=== PATIENT | male | born 1970 | race Caucasian/White ===

== ENCOUNTER 2019-01-18 14:38 | Emergency (ER) | payer BC, OTHER ==
[2019-01-18] MEDS: Lidocaine 1% 20 ML MDV ONE (14:51)
[2019-01-18] MEDS: Lidocaine 1% 20 ML MDV INJECT ONE (15:03)
--- NOTE | 2019-01-18 15:06 | EDM.PDOC ---
ED HPI GENERAL MEDICAL PROBLEM - General Chief Complaint: Laceration Stated Complaint: RIGHT HAND LACERATION Time Seen by Provider: 01/18/19 14:45 Source of Information: Reports: Patient History Limitations: Reports: No Limitations - History of Present Illness INITIAL COMMENTS - FREE TEXT/NARRATIVE: 48 YO WM presents to ER with 5cm laceration to right palm from metal cage. Pt reports laceration is at the base of his thumb without any functional deficits. Pt able to oppose thumb and injury is neurovascularly intact. Pt without any other complaints. Onset: Today Duration: Hour(s): (1) Location: Reports: Upper Extremity, Right Severity: Mild Improves with: Reports: None Worsens with: Reports: None Associated Symptoms: Reports: No Other Symptoms Treatments EXHIBIT PREPARATOR: Reports: Dressing(s) Right Hand Pain Score (Numeric/FACES): 4 - Related Data Allergies Allergy/AdvReac Type Severity Reaction Status Date / Time gemfibrozil [From Lopid] Allergy Hives Verified 01/18/19 14:48 morphine Allergy Hives Verified 01/18/19 14:48 Eajqazy-Yqj-Mui Reductase Allergy Hives Verified 01/18/19 14:48 Inhibitor Home Meds: Home Meds Cephalexin [Keflex] 500 mg PO Q6HR #40 capsule 01/18/19 [Rx] Cholestyramine/Sucrose [Cholestyramine] 1 pkt PO DAILY PRN 01/18/19 [History] Ezetimibe 10 mg PO DAILY 01/18/19 [History] Levothyroxine 175 mcg PO DAILY 01/18/19 [History] Lisinopril 2.5 mg PO DAILY 01/18/19 [History] metFORMIN HCl [Metformin HCl ER] 500 mg PO DAILY 01/18/19 [History] Past Medical History HEENT History: Reports: Allergic Rhinitis Musculoskeletal History: Reports: None Neurological History: Reports: Migraines Endocrine/Metabolic History: Reports: Diabetes, Type II, Hypothyroidism - Past Surgical History Head Surgeries/Procedures: Reports: None HEENT Surgical History: Reports: None GI Surgical History: Reports: Appendectomy, Cholecystectomy, Hernia, Inguinal Endocrine Surgical History: Reports: None Neurological Surgical History: Reports: None Musculoskeletal Surgical History: Reports: Shoulder Surgery Social & Family History - Family History Family Medical History: Noncontributory ED ROS GENERAL - Review of Systems Review Of Systems: See Below Constitutional: Reports: No Symptoms HEENT: Reports: No Symptoms Respiratory: Reports: No Symptoms Cardiovascular: Reports: No Symptoms Endocrine: Reports: No Symptoms GI/Abdominal: Reports: No Symptoms : Reports: No Symptoms Musculoskeletal: Reports: No Symptoms Skin: Reports: Wound (5cm laceration to palmar surface of right hand at base of thumb) Neurological: Reports: No Symptoms ED EXAM, SKIN/RASH Exam: See Below Exam Limited By: No Limitations General Appearance: Alert, WD/WN, No Apparent Distress Head: Atraumatic, Normocephalic Neck: Normal Inspection, Supple, Non-Tender, Full Range of Motion Respiratory/Chest: No Respiratory Distress, Lungs Clear, Normal Breath Sounds, No Accessory Muscle Use, Chest Non-Tender Cardiovascular: Normal Peripheral Pulses, Regular Rate, Rhythm, No Edema, No Gallop, No JVD, No Murmur, No Rub GI/Abdominal: Normal Bowel Sounds, Soft, Non-Tender, No Organomegaly, No Distention, No Abnormal Bruit, No Mass Back Exam: Normal Inspection, Full Range of Motion, NT Extremities: Normal Range of Motion, No Pedal Edema, Normal Capillary Refill Neurological: Alert, Oriented, CN II-XII Intact, Normal Cognition, Normal Gait, Normal Reflexes, No Motor/Sensory Deficits Psychiatric: Normal Affect, Normal Mood Skin: Warm, Dry, Normal Color, No Rash, Wound/Incision (5cm laceration to palmar surface of right hand at base of thumb) Location, Skin: Upper Extremity, Right Lymphatic: No Adenopathy ED SKIN PROCEDURES - Laceration/Wound Repair Right Hand Lac/Wound length In cm: 5 Appearance: Superficial Anesthetic Type: Local Local Anesthesia - Lidocaine (Xylocaine): 1% Plain Local Anesthetic Volume: Other (6cc) Skin Prep: Chlorhexidine (Hibiciens), Saline Exploration/Debridement/Repair: Wound Explored Closed with: Sutures Suture Size: 4-0 # of Sutures: 6 Sterile Dressing Applied: Provider Tetanus Status Addressed: Yes Complications: No Course - Vital Signs Last Recorded V/S: Last Vital Signs Temp 36.6 C 01/18/19 14:44 Pulse 80 01/18/19 14:44 Resp 16 01/18/19 14:44 BP 133/75 01/18/19 14:44 Pulse Ox 94 L 01/18/19 14:44 - Orders/Labs/Meds Meds: Medications Discontinued Medications Generic Name Dose Route Start Last Admin Trade Name Franci PRN Reason Stop Dose Admin Lidocaine HCl Confirm 01/18/19 14:40 01/18/19 14:51 Xylocaine 1% Administered 01/18/19 14:41 Not Given Dose 20 ml .ROUTE .STK-MED ONE Departure - Departure Time of Disposition: 15:23 Disposition: Home, Self-Care 01 Condition: Good Clinical Impression: Laceration of right palm without complication Qualifiers: Encounter type: initial encounter Qualified Code(s): S61.411A - Laceration without foreign body of right hand, initial encounter - Discharge Information Prescriptions: Cephalexin [Keflex] 500 mg PO Q6HR #40 capsule Instructions: Laceration Care, Adult Referrals: Marta Dupont PA-C [Primary Care Provider] - Additional Instructions: 1. discharge home 2. wound care instructions given 3. remove sutures in 10-14 days 4. return to ER for worsening symptoms 5. follow up in clinic for further evaluation and treatment - Assessment/Plan Assessment:: 1. 5cm laceration to palmar surface of right hand at base of thumb Plan: 1. discharge home 2. wound care instructions given 3. remove sutures in 10-14 days 4. return to ER for worsening symptoms 5. follow up in clinic for further evaluation and treatment
[2019-01-18] MEDS: Diphtheria,Pertussis(Acell),Tetanus Vaccine 0.5 ML SDV IM ONE (15:15)
== END 2019-01-18 15:30 | disposition home or self-care (01) ==
LOC: KA.ED 14:38
DX: S61.411A Laceration without foreign body of right hand, initial encounter (principal); E11.9 Type 2 diabetes mellitus without complications; E03.9 Hypothyroidism, unspecified; Z23 Encounter for immunization; Z79.84 Long term (current) use of oral hypoglycemic drugs; Z79.899 Other long term (current) drug therapy; Z90.49 Acquired absence of other specified parts of digestive tract; Z88.8 Allergy status to other drugs, medicaments and biological substances; Z88.5 Allergy status to narcotic agent; W26.8XXA Contact with other sharp object(s), not elsewhere classified, initial encounter
CPT/HCPCS: 12002; 90471; 90715; 99282; J2001

== ENCOUNTER 2019-08-26 10:54 | Observation (INO) | payer BC ==
[2019-08-26] MEDS ORDERED: Sodium Chloride 0.9% 10 ML Syringe FLUSH PRN (12:03)
[2019-08-26] MEDS ORDERED: Iopamidol 755 Mg/ML 100 ML Bottle IV ONE (12:29)
[2019-08-26] MEDS ORDERED: Diatrizoate Meglumine/Diatrizoate Sodium 37% 120 ML Bottle PO ONE (12:29)
[2019-08-26] MEDS ORDERED: Sodium Chloride 0.9% 50 ML IV SCH (12:30)
[2019-08-26] MEDS: Ondansetron 4 MG/2 ML SDV IV PRN ×2 (12:39→17:07)
[2019-08-26] MEDS: HYDROmorphone 2 MG/ML SDV IVPUSH PRN ×2 (12:40→16:05)
[2019-08-26] MEDS: Sodium Chloride 0.9% 1,000 ML IV SCH (12:41)
--- NOTE | 2019-08-26 13:01 | CT ---
[id number] CT/CT Abdomen Pelvis W IV EXAM: ABDOMEN AND PELVIS CT WITH CONTRAST INDICATION: Abdominal pain. COMPARISON: None. DISCUSSION: There are a couple of small noncalcified nodules in the lung bases including a 3 mm right lower lobe nodule (image 3 series 2) and a 2.5 mm right middle lobe nodule (image 12 series 2). Cholecystectomy and appendectomy. Small fat-containing umbilical hernia. The liver, pancreas, spleen, adrenal glands, kidneys, small bowel, and large bowel are normal in appearance. No adenopathy, free air free fluid. The osseous structures are unremarkable. IMPRESSION: 1. No acute findings. Oren Garcia MD 08/26/19 [id number] Thank you for allowing us to participate in the care of your patient.
[2019-08-26] MEDS ORDERED: Pantoprazole 40 MG Vial IVPUSH ONE (15:01)
[2019-08-26] MEDS ORDERED: GI Cocktail 45 ML BOTTLE PO ONE (15:10)
--- NOTE | 2019-08-26 18:35 | CR ---
[id number] RAD/RAD Chest PA And Lateral EXAM: FRONTAL AND LATERAL CHEST INDICATION: LEFT-SIDED PAIN, SWEATY, NAUSEA, VOMITING. COMPARISON: None. DISCUSSION: Mild left lower lobe infiltrates are suggested. The right lung is clear. The heart is normal in size. IMPRESSION: 1. Early left lower lobe infiltrates are suggested. Oren Garcia MD 08/26/19 [id number] Thank you for allowing us to participate in the care of your patient.
[2019-08-26] MEDS ORDERED: Acetaminophen 500 MG Tab PO PRN (19:13)
[2019-08-26] MEDS ORDERED: Fluticasone Propionate Nasal Spray 16 GM Bottle NASBOTH SCH (21:00)
[2019-08-26] MEDS: HYDROmorphone 1 MG/ML Syringe IVPUSH PRN (21:04)
[2019-08-26] MEDS: Pantoprazole 40 MG Vial IVPUSH SCH (21:05)
[2019-08-27] MEDS: Sodium Chloride 0.9% 1,000 ML IV SCH ×3 (02:31→19:59)
[2019-08-27] MEDS: HYDROmorphone 1 MG/ML Syringe IVPUSH PRN ×4 (04:03→20:01)
[2019-08-27] MEDS: Levothyroxine 75 MCG Tab PO SCH (08:26)
[2019-08-27] MEDS: Pantoprazole 40 MG Vial IVPUSH SCH ×2 (08:26→20:19)
[2019-08-27] MEDS: Levothyroxine 100 MCG Tab PO SCH (08:27)
[2019-08-27] MEDS ORDERED: Hyoscyamine 0.125 MG Tab.SL SL PRN (08:55)
[2019-08-27] MEDS: Ondansetron 4 MG/2 ML SDV IV PRN ×2 (10:05→20:15)
--- NOTE | 2019-08-27 11:10 | PCM.PN ---
- General Info Date of Service: 08/27/19 Functional Status: Reports: Urinating, New Symptoms (Left upper quadrant abdominal pain as soon as meal was eaten this morning). Denies: Pain Controlled , Tolerating Diet, Ambulating - Review of Systems General: Denies: Fever, Weakness, Fatigue, Malaise HEENT: Reports: No Symptoms Pulmonary: Reports: No Symptoms Cardiovascular: Reports: No Symptoms Gastrointestinal: Reports: Abdominal Pain, Decreased Appetite. Denies: Constipation, Diarrhea, Difficulty Swallowing, Melena, Nausea, Vomiting Genitourinary: Reports: No Symptoms Musculoskeletal: Reports: No Symptoms Skin: Reports: No Symptoms Neurological: Denies: Confusion Psychiatric: Reports: Anxiety, Agitation - Patient Data Vitals - Most Recent: Last Vital Signs Temp 97.4 F 08/27/19 06:26 Pulse 61 08/27/19 06:26 Resp 18 08/27/19 06:26 BP 102/53 L 08/27/19 06:26 Pulse Ox 97 08/27/19 06:30 Weight - Most Recent: 196 lb I&O - Last 24 Hours: Intake & Output 08/26/19 08/27/19 08/27/19 22:59 06:59 14:59 Intake Total 1295 Output Total 120 300 Balance -120 995 Lab Results Last 24 Hours: Laboratory Results - last 24 hr 08/26/19 08/26/19 08/26/19 Range/Units 13:35 14:15 14:15 ESR 4 (0-15) mm/hr D-Dimer, Quantitative < 100 (<400) ng/mL POC Glucose (74-106) mg/dl Troponin I 0.07 (0.00-0.070) ng/mL Amylase 50 (25-125) U/L Specimen Type Urine Color (YELLOW) Urine Appearance (CLEAR) Urine pH (5.0-9.0) Ur Specific Leslie (1.005-1.030) Urine Protein (NEGATIVE) mg/dL Urine Glucose (UA) (NEGATIVE) mg/dL Urine Ketones (NEGATIVE) mg/dL Urine Occult Blood (NEGATIVE) Urine Nitrite (NEGATIVE) Urine Bilirubin (NEGATIVE) Urine Urobilinogen (0.2-1.0) E.U./dL Ur Leukocyte Esterase (NEGATIVE) 08/26/19 08/26/19 Range/Units 16:08 17:00 ESR (0-15) mm/hr D-Dimer, Quantitative (<400) ng/mL POC Glucose 114 H (74-106) mg/dl Troponin I (0.00-0.070) ng/mL Amylase (25-125) U/L Specimen Type . Urine Color Yellow (YELLOW) Urine Appearance Clear (CLEAR) Urine pH 6.5 (5.0-9.0) Ur Specific Leslie 1.015 (1.005-1.030) Urine Protein Negative (NEGATIVE) mg/dL Urine Glucose (UA) Negative (NEGATIVE) mg/dL Urine Ketones Negative (NEGATIVE) mg/dL Urine Occult Blood Negative (NEGATIVE) Urine Nitrite Negative (NEGATIVE) Urine Bilirubin Negative (NEGATIVE) Urine Urobilinogen 0.2 (0.2-1.0) E.U./dL Ur Leukocyte Esterase Negative (NEGATIVE) Med Orders - Current: Current Medications Acetaminophen (Tylenol Extra Strength) 1,000 mg PO Q8H PRN PRN Reason: Pain (mild 1-3) Hydromorphone HCl (Dilaudid) 1 mg IVPUSH Q2H PRN PRN Reason: moderate-severe pain Last Admin: 08/27/19 08:50 Dose: 1 mg Hyoscyamine (Hyomax-Sl) 0.25 mg SL Q4H PRN PRN Reason: Abdominal Pain Sodium Chloride (Normal Saline) 1,000 mls @ 75 mls/hr IV ASDIRECTED [facility] Last Admin: 08/27/19 02:31 Dose: 75 mls/hr Levothyroxine Sodium (Synthroid) 100 mcg PO DAILY [facility] Last Admin: 08/27/19 08:27 Dose: 100 mcg Levothyroxine Sodium (Levothyroxine) 75 mcg PO QAM [facility] Last Admin: 08/27/19 08:26 Dose: 75 mcg Ondansetron HCl (Zofran) 4 mg IV Q4H PRN PRN Reason: Nausea/Vomiting Last Admin: 08/27/19 10:05 Dose: 4 mg Pantoprazole Sodium (Protonix Iv) 40 mg IVPUSH Q12H [facility] Last Admin: 08/27/19 08:26 Dose: 40 mg Sodium Chloride (Saline Flush) 10 ml FLUSH Q8HR PRN PRN Reason: keep vein open Last Admin: 08/26/19 12:40 Dose: 10 ml Discontinued Medications Al Hydroxide/Mg Hydroxide (Gi Cocktail) 45 ml PO ONETIME ONE Stop: 08/26/19 15:11 Last Admin: 08/26/19 15:34 Dose: 45 ml Diatrizoate Meglum/Diatrizoate Sod (Gastrografin 37%) 120 ml PO ONETIME ONE Stop: 08/26/19 12:30 Last Admin: 08/26/19 13:50 Dose: 30 ml Fluticasone Propionate (Flonase) 0 gm NASBOTH BID [facility] Last Admin: 08/26/19 21:18 Dose: Not Given Hydromorphone HCl (Dilaudid) 1 mg IVPUSH Q2H PRN PRN Reason: Pain (severe 7-10) Last Admin: 08/26/19 16:05 Dose: 1 mg Sodium Chloride (Normal Saline) 50 mls @ 200 mls/hr IV ASDIRECTED [facility] Last Admin: 08/26/19 13:50 Dose: 200 mls/hr Iopamidol (Isovue-370 (76%)) 100 ml IV ONETIME ONE Stop: 08/26/19 12:30 Last Admin: 08/26/19 13:48 Dose: 75 ml Pantoprazole Sodium (Protonix Iv) 40 mg IVPUSH ONETIME ONE Stop: 08/26/19 15:02 Last Admin: 08/26/19 15:34 Dose: 40 mg - Exam Quality Assessment: Supplemental Oxygen General: Alert, Oriented, Mild Distress HEENT: Other (Mucous membranes) Neck: Supple, No JVD Lungs: Clear to Auscultation, Normal Respiratory Effort Cardiovascular: Regular Rate, Regular Rhythm GI/Abdominal Exam: No Distention, No Abnormal Bruit, Guarding (Reproducible abdominal pain left upper quadrant 4 cm from midline). No: No Mass, Distended, Splenomegaly (Male) Exam: Deferred Back Exam: No: CVA Tenderness (L), CVA Tenderness (R) Extremities: Normal Capillary Refill. No: Pedal Edema Peripheral Pulses: 2+: Brachial (R), Radial (L) Skin: Dry Psy/Mental Status: Alert, Agitated Sepsis Event Note - Evaluation Sepsis Screening Result: No Definite Risk - Focused Exam Vital Signs: Vital Signs Temp Pulse Resp BP Pulse Ox Pulse Ox 08/27/19 06:30 97 08/27/19 06:26 97.4 F 61 18 102/53 L 97 01/30/20 03:00 96.7 F 62 18 99/52 L 99 08/26/19 22:55 97.1 F 77 16 100/57 L 95 Date Exam was Performed: 08/27/19 Time Exam was Performed: 11:16 - Problem List Review Problem List Initiated/Reviewed/Updated: Yes - My Orders Last 24 Hours: My Active Orders 08/27/19 08:55 Hyoscyamine [Hyomax-SL] 0.25 mg SL Q4H PRN - Plan Plan:: History summary 49 yo mated by Payal Tucker NP due to left upper quadrant abdominal pain. Came into the [facility] complaining of nausea, ~ 2-week hx of LUQ abdominal pain he initially contributed to flulike type symptoms. He does have a history of gallstone pancreatitis 2016 subsequent lap cholecystectomy he contributes his symptoms very similar. Had a few alcoholic drinks over the weekend, which worsened the pain. Seems to be associated with eating breakfast with accompany N/V/D. No measured fever, vomiting, constipation. On NDAIDS 08/30 "shouler pain", No PPI. Pertinent history 08/14/18 CT abd/pelvis d/t upper abd pain: no definite acute intra-abdominal process, mild to moderate fecal material retention in the colonic loops, nondistended descending colonic loops with suggestion of mild wall thickening, left inguinal hernia containing fat. Lipase 140, Amylase 98 Upper GI with biopsy, 2019, patient reports normal Pertinent physical exam findings/diagnostics CT of the abdomen and pelvis, no acute findings, Lipase /amylase, within normal limits, Inflammatory markers EKG, non-concerning Electrolytes, normal ALT/AST, normal H. pylori pending Primary hospital problems --Suspect acute on chronic pancreatitis 2/2 to elevated triglycerides, diabetes mellitus, dehydration, EtOH use. May benefit from direct pancreatic functions assessment --DeHydration, Chronic conditions: -Hypercholesterolemia, intolerant to statins: On fenofibrate 48 mg daily, zetia 10 mg daily. Trigs [id number] (07/2019). -T2DM: On metformin XR 500 mg daily, lisinopril 2.5 mg daily. Doesn't routinely check sugars. A1c 5.6 (2018). Follows with endocrinology for the above conditions. Last seen 08/13/19. Secondary work-up for hypertriglyceridemia was done/negative. Disposition/overall plan --Continue observation today --Pain control measures --IV fluids increased. --I/O --N.p.o. until supper then clear fluids/jello --Must stop all EtOH use --Trial of Hyoscymine today --Hold metformin until improved hydration status --May need psychiatry referral --Appointment made for Dr Susan Lua, [place] surgeon on 09/08 at 10:am. Can go to [place] ED upon DC if needed. --Anticipate discharge in a.m.
[2019-08-27] MEDS ORDERED: Sodium Chloride 0.9% 1,000 ML IV ONE (11:12)
[2019-08-27] MEDS ORDERED: Cetirizine 10 MG Tab PO PRN (11:14)
[2019-08-28] MEDS: Sodium Chloride 0.9% 1,000 ML IV SCH (02:48)
[2019-08-28] MEDS: Pantoprazole 40 MG Vial IVPUSH SCH (08:00)
[2019-08-28] MEDS: Levothyroxine 100 MCG Tab PO SCH (08:02)
[2019-08-28] MEDS: Levothyroxine 75 MCG Tab PO SCH (08:02)
[2019-08-28] MEDS ORDERED: UBIDECARENONE 10 MG PO SCH (09:00)
--- NOTE | 2019-08-28 10:12 | PCM.DCSUM1 ---
Discharge Summary - Hospital Course Diagnosis: Stroke: No - Discharge Data Discharge Date: 08/28/19 Discharge Disposition: Home, Self-Care 01 Condition: Good - Referral to Home Health Primary Care Physician: Marta Dupont PA-C - Patient Instructions Diet: Drink 8-10+ Glasses/Day Diet, Other: low fat, diet as tolerated. Activity: As Tolerated Driving: May Drive Today Showering/Bathing: May Shower Notify Provider of: Fever, Increased Pain, Nausea and/or Vomiting Other/Special Instructions: Appointment with Susan Lua Aug at 10am. [place] [facility]. 10:am. Can go to [place] ED if any concerns. Avoid Alcohol - Discharge Plan *PRESCRIPTION DRUG MONITORING PROGRAM REVIEWED*: No *COPY OF PRESCRIPTION DRUG MONITORING REPORT IN PATIENT JENNYFER: No Prescriptions/Med Rec: HYDROmorphone [Dilaudid] 2 mg PO Q4H PRN #30 tab PRN Reason: Abdominal Pain Hyoscyamine [Hyomax-SL] 0.25 mg SL Q6H PRN #30 tab.sl PRN Reason: Abdominal Pain Home Medications: Home Meds Ezetimibe 10 mg PO DAILY 01/18/19 [History] Levothyroxine 175 mcg PO DAILY 01/18/19 [History] Lisinopril 2.5 mg PO DAILY 01/18/19 [History] metFORMIN HCl [Metformin HCl ER] 500 mg PO DAILY 01/18/19 [History] Albuterol Sulfate [Albuterol Sulfate Hfa] 18 gm IH PRN 08/26/19 [History] Cetirizine [ZyrTEC] 10 mg PO DAILY PRN 08/26/19 [History] Cholecalciferol (Vitamin D3) [Vitamin D3] 1,000 unit PO DAILY 08/26/19 [History] Diclofenac Sodium 75 mg PO BID 08/26/19 [History] Fenofibrate Nanocrystallized [Tricor] 48 mg PO DAILY 08/26/19 [History] Fluticasone Propionate [Flonase] 16 gm NS BID PRN 08/26/19 [History] Evergreen-3/DHA/Epa/Fish Oil [Evergreen-3 Fish Oil 1,000 MG Sfgl] 2 cap PO DAILY [History] Rizatriptan Benzoate [Rizatriptan] 5 mg PO Q2HR PRN 08/26/19 [History] Ubidecarenone [Coenzyme Q10] 10 mg PO DAILY 08/26/19 [History] diphenhydrAMINE [Benadryl] 25 mg PO BEDTIME PRN 08/26/19 [History] HYDROmorphone [Dilaudid] 2 mg PO Q4H PRN #30 tab 08/28/19 [Rx] Hyoscyamine [Hyomax-SL] 0.25 mg SL Q6H PRN #30 tab.sl 08/28/19 [Rx] Referrals: Payal Tucker NP [Nurse Practitioner] - (anytime next week. ) - Discharge Summary/Plan Comment DC Time >30 min.: No Discharge Summary/Plan Comment: Final diagnosis Left upper quadrant aminal pain, questionable subclinical acute on chronic pancreatitis 2/2 to elevated triglycerides, diabetes mellitus, dehydration, EtOH use. Hypertriglyceridemia Dehydration, History summary Tutu is a 49 yo male who was admitted to the hospital by Payal Tucker NP due to left upper quadrant abdominal pain. Came into the [facility] clinic complaining of nausea, ~ 2-week hx of LUQ abdominal pain he initially contributed to flu-like type symptoms. He does have a history of gallstone pancreatitis in 2016 with subsequent lap cholecystectomy he contributes his symptoms very similar. Had a few alcoholic drinks over the weekend, which worsened the pain. Seems to be associated with eating breakfast with accompany N/V/D. No measured fever, vomiting, constipation. On NDAIDS 2/ "shoulder pain" , No PPI. He was admitted for pain control and further work-up Pertinent history --08/14/18 CT abd/pelvis d/t upper abd pain: no definite acute intra-abdominal process, mild to moderate fecal material retention in the colonic loops, nondistended descending colonic loops with suggestion of mild wall thickening, left inguinal hernia containing fat. Lipase 140, Amylase 98 --2019 Upper GI with biopsy, patient reports normal Pertinent physical exam findings/diagnostics CT of the abdomen and pelvis, no acute findings, Lipase/amylase, WNL Inflammatory markers neg EKG, troponin normal Electrolytes, normal ALT/AST, normal H. pylori pending at [facility] course First day of admission patient did quite well however immediately upon eating breakfast the morning of rounds he started experience sharp left upper quadrant abdominal pain quite significant which required ongoing further monitoring. He was made n.p.o. and advance to clear liquids which he tolerated somewhat without vomiting however he sweeteners and syrup will cause problems with abdominal pain. He had no fever, vital signs were all stable, d-dimer was non- concerning, no inflammatory marker elevation amylase normal. UA was normal. Was given Dilaudid which helped considerably. Trial of hyoscyamine with mixed results. He was significantly dehydrated however this was corrected with IV fluids boluses and aggressive maintenance rates. Metformin was held during his hospital status due to his dehydration state. Medication changes/adjustments upon discharge Dilaudid 2 mg p.o. every 4 hours PRN for pain #30 Hyoscyamine 0.125 mg, 2 tabs p.o. as needed every 6 hours as needed Continue on all other home meds Disposition Patient will be discharged from the hospital --[facility] --stop all EtOH use --Appointment with Dr Susan Lua, [place] surgeon Ayush, SANDIE 09/08 at 10:am. --Report to [place] ED any abdominal pain that is worsening or any other concerns Considerations at follow-up --May benefit from direct pancreatic functions assessment --Assess H. pylori results --Assess need for hyoscyamine --I spoke with patient about possible [place] referral - General Info Functional Status: Reports: Pain Controlled, Tolerating Diet, Ambulating, Urinating. Denies: New Symptoms - Review of Systems General: Denies: Fever, Weakness, Fatigue, Malaise Cardiovascular: Reports: No Symptoms Gastrointestinal: Reports: Abdominal Pain (Abdominal pain after he eats). Denies: Decreased Appetite, Diarrhea, Difficulty Swallowing, Melena, Nausea, Vomiting Genitourinary: Reports: No Symptoms Musculoskeletal: Reports: No Symptoms Skin: Reports: No Symptoms Neurological: Denies: Confusion Psychiatric: Denies: Agitation - Patient Data Vitals - Most Recent: Last Vital Signs Temp 97.6 F 08/28/19 06:40 Pulse 68 08/28/19 06:40 Resp 18 08/28/19 06:40 BP 134/77 08/28/19 06:40 Pulse Ox 97 08/28/19 06:40 Weight - Most Recent: 196 lb I&O - Last 24 hours: Intake & Output 08/27/19 08/28/19 08/28/19 22:59 06:59 14:59 Intake Total 1640 1105 Output Total 300 8620 Balance 915 -547 Med Orders - Current: Current Medications Discontinued Medications Acetaminophen (Tylenol Extra Strength) 1,000 mg PO Q8H PRN PRN Reason: Pain (mild 1-3) Al Hydroxide/Mg Hydroxide (Gi Cocktail) 45 ml PO ONETIME ONE Stop: 08/26/19 15:11 Last Admin: 08/26/19 15:34 Dose: 45 ml Cetirizine HCl (Zyrtec) 10 mg PO DAILY PRN PRN Reason: Allergies Diatrizoate Meglum/Diatrizoate Sod (Gastrografin 37%) 120 ml PO ONETIME ONE Stop: 08/26/19 12:30 Last Admin: 08/26/19 13:50 Dose: 30 ml Fluticasone Propionate (Flonase) 0 gm NASBOTH BID [facility] Last Admin: 08/26/19 21:18 Dose: Not Given Hydromorphone HCl (Dilaudid) 1 mg IVPUSH Q2H PRN PRN Reason: Pain (severe 7-10) Last Admin: 08/26/19 16:05 Dose: 1 mg Hydromorphone HCl (Dilaudid) 1 mg IVPUSH Q2H PRN PRN Reason: moderate-severe pain Last Admin: 08/27/19 20:01 Dose: 1 mg Hyoscyamine (Hyomax-Sl) 0.25 mg SL Q4H PRN PRN Reason: Abdominal Pain Last Admin: 08/27/19 11:42 Dose: 0.25 mg Sodium Chloride (Normal Saline) 1,000 mls @ 75 mls/hr IV ASDIRECTED [facility] Last Admin: 08/27/19 02:31 Dose: 75 mls/hr Sodium Chloride (Normal Saline) 50 mls @ 200 mls/hr IV ASDIRECTED [facility] Last Admin: 08/26/19 13:50 Dose: 200 mls/hr Sodium Chloride (Normal Saline) 1,000 mls @ 999 mls/hr IV .BOLUS ONE Stop: 08/27/19 12:12 Last Admin: 08/27/19 11:36 Dose: 999 mls/hr Sodium Chloride (Normal Saline) 1,000 mls @ 150 mls/hr IV ASDIRECTED [facility] Last Admin: 08/28/19 02:48 Dose: 150 mls/hr Iopamidol (Isovue-370 (76%)) 100 ml IV ONETIME ONE Stop: 08/26/19 12:30 Last Admin: 08/26/19 13:48 Dose: 75 ml Levothyroxine Sodium (Synthroid) 100 mcg PO DAILY [facility] Last Admin: 08/28/19 08:02 Dose: 100 mcg Levothyroxine Sodium (Levothyroxine) 75 mcg PO QAM [facility] Last Admin: 08/28/19 08:02 Dose: 75 mcg Ondansetron HCl (Zofran) 4 mg IV Q4H PRN PRN Reason: Nausea/Vomiting Last Admin: 08/27/19 20:15 Dose: 4 mg Pantoprazole Sodium (Protonix Iv) 40 mg IVPUSH ONETIME ONE Stop: 08/26/19 15:02 Last Admin: 08/26/19 15:34 Dose: 40 mg Pantoprazole Sodium (Protonix Iv) 40 mg IVPUSH Q12H [facility] Last Admin: 08/28/19 08:00 Dose: 40 mg Sodium Chloride (Saline Flush) 10 ml FLUSH Q8HR PRN PRN Reason: keep vein open Last Admin: 08/26/19 12:40 Dose: 10 ml - Exam Quality Assessment: Denies: Supplemental Oxygen General: Reports: Alert, Oriented Lungs: Reports: Clear to Auscultation, Normal Respiratory Effort GI/Abdominal Exam: Soft, No Distention, Other (Creased frequency of bowel tones non-tympanic in nature). No: Tender Skin: Reports: Moist
== END 2019-08-28 09:00 | disposition home or self-care (01) ==
LOC: KA.MS 10:54
PROVIDERS: ADMIT Nurse Practitioner Family; ATTEND Family Medicine
DX: R10.12 Left upper quadrant pain (principal); R11.0 Nausea; E86.0 Dehydration; E78.00 Pure hypercholesterolemia, unspecified; E11.9 Type 2 diabetes mellitus without complications; Z87.19 Personal history of other diseases of the digestive system; Z90.49 Acquired absence of other specified parts of digestive tract; Z79.4 Long term (current) use of insulin
CPT/HCPCS: 36415; 71046; 74177; 81003; 82150; 82962; 84484; 85379; 85651; 93005; 96361; 96374; 96375; 96376; A9270; C9113; G0378; J1170; J2405; J7030; J7050; Q9963; Q9967

== ENCOUNTER 2020-11-21 07:00 | Emergency (ER) | payer BC ==
[2020-11-21] MEDS ORDERED: Acetaminophen/oxyCODONE 325-5 MG Tab PO ONE (08:50)
[2020-11-21] MEDS ORDERED: methylPREDNISolone Sodium Succinate 125 MG/2 ML SDV IVPUSH ONE (08:50)
--- NOTE | 2020-11-21 08:54 | EDM.PDOC ---
ED HPI GENERAL MEDICAL PROBLEM - General Chief Complaint: General Stated Complaint: HAMSTRING CRAMPS Time Seen by Provider: 11/21/20 07:25 Source of Information: Reports: Patient, Significant Other History Limitations: Reports: No Limitations - History of Present Illness INITIAL COMMENTS - FREE TEXT/NARRATIVE: Patient presents with "cramping" in bilateral hamstrings. The left is worse than the right. This started 4 days ago after returning for 1/2 day at work (first shift since his back surgery). He is 7 weeks s/p surgery on his back. 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 The pain/spasm got worse through the night and this morning while stretching became worse yet. Last night he took cyclobenzaprine with no benefit. He has been up and active since his surgery. He says he has never had cramping like this before. The pain is worst just below the left posterior midline gluteus but painful along the muscle down to the posterior knee. His wonders if it could be a blood clot. Treatments DESK ASSISTANT: Reports: NSAIDS, Other (see below) Other Treatments DESK ASSISTANT: flexeril Bilateral Pain Score (Numeric/FACES): 10 - Related Data Allergies Allergy/AdvReac Type Severity Reaction Status Date / Time gemfibrozil [From Lopid] Allergy Hives Verified 11/21/20 07:36 morphine Allergy Hives Verified 11/21/20 07:36 [id number] Reductase Allergy Hives Verified 11/21/20 07:36 Inhibitor Home Meds: Home Meds Ezetimibe 10 mg PO DAILY 01/18/19 [History] Levothyroxine 175 mcg PO DAILY 01/18/19 [History] Lisinopril 2.5 mg PO DAILY 01/18/19 [History] metFORMIN HCl [Metformin HCl ER] 500 mg PO DAILY 01/18/19 [History] Albuterol Sulfate [Albuterol Sulfate Hfa] 18 gm IH PRN 08/26/19 [History] Cetirizine [ZyrTEC] 10 mg PO DAILY PRN 08/26/19 [History] Cholecalciferol (Vitamin D3) [Vitamin D3] 1,000 unit PO DAILY 08/26/19 [History] Diclofenac Sodium 75 mg PO BID 08/26/19 [History] Fenofibrate Nanocrystallized [Tricor] 48 mg PO DAILY 08/26/19 [History] Fluticasone Propionate [Flonase] 16 gm NS BID PRN 08/26/19 [History] Aurora-3/DHA/Epa/Fish Oil [Aurora-3 Fish Oil 1,000 MG Sfgl] 2 cap PO DAILY 08/26/19 [History] Rizatriptan Benzoate [Rizatriptan] 5 mg PO Q2HR PRN 08/26/19 [History] Ubidecarenone [Coenzyme Q10] 10 mg PO DAILY 08/26/19 [History] diphenhydrAMINE [Benadryl] 25 mg PO BEDTIME PRN 08/26/19 [History] HYDROmorphone [Dilaudid] 2 mg PO Q4H PRN #30 tab 08/28/19 [Rx] Hyoscyamine [Hyomax-SL] 0.25 mg SL Q6H PRN #30 tab.sl 08/28/19 [Rx] Past Medical History HEENT History: Reports: Allergic Rhinitis Cardiovascular History: Reports: None Respiratory History: Reports: None Gastrointestinal History: Reports: None Genitourinary History: Reports: None Musculoskeletal History: Reports: None Neurological History: Reports: Migraines Psychiatric History: Reports: None Endocrine/Metabolic History: Reports: Diabetes, Type II, Hypothyroidism Hematologic History: Reports: None Immunologic History: Reports: None Oncologic (Cancer) History: Reports: None Dermatologic History: Reports: None - Infectious Disease History Infectious Disease History: Reports: Chicken Pox - Past Surgical History Head Surgeries/Procedures: Reports: None HEENT Surgical History: Reports: None Cardiovascular Surgical History: Reports: None Respiratory Surgical History: Reports: None GI Surgical History: Reports: Appendectomy, Cholecystectomy, Hernia, Inguinal Endocrine Surgical History: Reports: None Neurological Surgical History: Reports: Other (See Below) Other Neurological Surgeries/Procedures: L4 L5 BBuldging disc repair and cyst removal October 03 2020 Musculoskeletal Surgical History: Reports: Shoulder Surgery Oncologic Surgical History: Reports: None Social & Family History - Family History Family Medical History: No Pertinent Family History - Tobacco Use Tobacco Use Status *Q: Current Status Unknown - Caffeine Use Caffeine Use: Reports: Coffee, Soda - Recreational Drug Use Recreational Drug Use: No ED ROS GENERAL - Review of Systems Review Of Systems: See Below Constitutional: Denies: Fever, Chills, Malaise, Weakness HEENT: Reports: No Symptoms Respiratory: Denies: Shortness of Breath, Cough Cardiovascular: Denies: Chest Pain, Lightheadedness, Syncope Endocrine: Reports: No Symptoms GI/Abdominal: Denies: Abdominal Pain, Diarrhea, Vomiting : Reports: No Symptoms Musculoskeletal: Reports: Leg Pain. Denies: Neck Pain, Shoulder Pain, Arm Pain, Back Pain, Hand Pain, Foot Pain Skin: Denies: Cyanosis, Jaundice, Mottled, Pallor, Diaphoresis Neurological: Denies: Confusion, Dizziness, Headache, Seizure, Syncope, Trouble Speaking Psychiatric: Denies: Confusion ED EXAM, GENERAL - Physical Exam Exam: See Below Exam Limited By: No Limitations General Appearance: Alert, WD/WN, No Apparent Distress Eye Exam: Bilateral Eye: EOMI, Normal Inspection, PERRL Ears: Normal External Exam, Hearing Grossly Normal Nose: Normal Inspection, No Blood Throat/Mouth: Normal Inspection, Normal Lips, Normal Voice, No Airway Compromise Head: Atraumatic, Normocephalic Neck: Normal Inspection, Full Range of Motion Respiratory/Chest: No Respiratory Distress, Lungs Clear, Normal Breath Sounds, No Accessory Muscle Use Cardiovascular: Regular Rate, Rhythm, No Murmur Peripheral Pulses: 2+: Posterior Tibial (L), Posterior Tibial (R) GI/Abdominal: Normal Bowel Sounds, Soft, Non-Tender, No Organomegaly, No Distention Back Exam: Normal Inspection, Full Range of Motion Extremities: Normal Range of Motion (of RLE), No Pedal Edema, Limited Range of Motion (of LLE; tolerates straight-leg hip flexion only to 35-40 degrees), Other (Palpation of calf, thigh, hamstrings bilat are soft and supple without pain or swelling. Deeper probing of left inferior gluteus and posterior thigh does reproduce the pain somewhat and appears to be tight muscle running down the posterior along the postero-lateral femur. Nontender in medial thigh). No: Ankit's Sign Neurological: Alert, Oriented, Normal Cognition, No Motor/Sensory Deficits Psychiatric: Normal Affect, Anxious (and with mild to moderate agitation on arrival and throughout ER course) Skin Exam: Warm, Dry, Intact, Normal Color, No Rash Course - Vital Signs Last Recorded V/S: Last Vital Signs Temp 96.5 F L 11/21/20 07:28 Pulse 97 11/21/20 07:28 Resp 20 11/21/20 07:28 BP 145/77 H 11/21/20 07:28 Pulse Ox 94 L 11/21/20 07:28 - Orders/Labs/Meds Labs: Laboratory Tests 11/21/20 11/21/20 11/21/20 Range/Units 08:15 08:15 08:15 WBC 5.53 (5.00-10.00) 10^3/uL RBC 4.66 (4.50-6.00) 10^6/uL Hgb 13.5 (13.0-17.0) g/dL Hct 40.3 (40.0-52.0) % MCV 86.5 (82.0-92.0) fL MCH 29.0 (27.0-31.0) pg MCHC 33.5 (32.0-36.0) g/dL RDW 12.9 (11.5-14.5) % Plt Count 260 (150-400) 10^3/uL MPV 8.5 (7.4-10.4) fL Immature Gran % (Auto) 0.5 (0.0-5.0) % Neut % (Auto) 65.3 (50.0-70.0) % Lymph % (Auto) 24.1 (20.0-40.0) % Hendry % (Auto) 8.1 H (2.0-8.0) % Eos % (Auto) 1.6 (1.0-3.0) % Baso % (Auto) 0.4 (0.0-1.0) % Neut # (Auto) 3.61 (2.50-7.00) 10^3/uL Lymph # (Auto) 1.33 (1.00-4.00) 10^3/uL Hendry # (Auto) 0.45 (0.10-0.80) 10^3/uL Eos # (Auto) 0.09 L (0.10-0.30) 10^3/uL Baso # (Auto) 0.02 (0.00-0.10) 10^3/uL Immature Gran # (Auto) 0.03 (0.00-0.50) 10^3/uL D-Dimer, Quantitative < 100 (<400) ng/mL Sodium (136-145) mmol/L Potassium (3.5-5.1) mmol/L Chloride (98-107) mmol/L Carbon Dioxide (21.0-32.0) mmol/L Anion Gap (5-15) mmol/L BUN (7-18) mg/dL Creatinine (0.51-1.17) mg/dL Est Cr Clr Drug Dosing mL/min Estimated GFR (MDRD) mL/min Glucose (70-140) mg/dL Calcium (8.7-10.3) mg/dL C-Reactive Protein < 0.4 (0.0-0.9) mg/dL 11/21/20 Range/Units 08:15 WBC (5.00-10.00) 10^3/uL RBC (4.50-6.00) 10^6/uL Hgb (13.0-17.0) g/dL Hct (40.0-52.0) % MCV (82.0-92.0) fL MCH (27.0-31.0) pg MCHC (32.0-36.0) g/dL RDW (11.5-14.5) % Plt Count (150-400) 10^3/uL MPV (7.4-10.4) fL Immature Gran % (Auto) (0.0-5.0) % Neut % (Auto) (50.0-70.0) % Lymph % (Auto) (20.0-40.0) % Hendry % (Auto) (2.0-8.0) % Eos % (Auto) (1.0-3.0) % Baso % (Auto) (0.0-1.0) % Neut # (Auto) (2.50-7.00) 10^3/uL Lymph # (Auto) (1.00-4.00) 10^3/uL Hendry # (Auto) (0.10-0.80) 10^3/uL Eos # (Auto) (0.10-0.30) 10^3/uL Baso # (Auto) (0.00-0.10) 10^3/uL Immature Gran # (Auto) (0.00-0.50) 10^3/uL D-Dimer, Quantitative (<400) ng/mL Sodium 141 (136-145) mmol/L Potassium 5.1 (3.5-5.1) mmol/L Chloride 103 (98-107) mmol/L Carbon Dioxide 25.7 (21.0-32.0) mmol/L Anion Gap 17.4 H (5-15) mmol/L BUN 17 (7-18) mg/dL Creatinine 1.03 (0.51-1.17) mg/dL Est Cr Clr Drug Dosing 84.85 mL/min Estimated GFR (MDRD) > 60 mL/min Glucose 111 (70-140) mg/dL Calcium 9.4 (8.7-10.3) mg/dL C-Reactive Protein (0.0-0.9) mg/dL Meds: Medications Discontinued Medications Generic Name Dose Route Start Last Admin Trade Name Freq PRN Reason Stop Dose Admin Methylprednisolone Sodium Succinate 125 mg 11/21/20 08:50 11/21/20 08:58 Methylprednisolone Sodium Succinate 125 Mg/2 Ml Sdv IVPUSH 11/21/20 08:51 Not Given ONETIME ONE Methylprednisolone Sodium Succinate 125 mg 11/21/20 09:02 11/21/20 09:04 Methylprednisolone Sodium Succinate 125 Mg/2 Ml Sdv IM 11/21/20 09:03 125 mg ONETIME ONE Administration Oxycodone/Acetaminophen 1 tab 11/21/20 08:50 11/21/20 08:58 Acetaminophen/Oxycodone 325-5 Mg Tab PO 11/21/20 08:51 1 tab ONETIME ONE Administration - Re-Assessments/Exams Free Text/Narrative Re-Assessment/Exam: 11/21/20 09:56 Labs good. Pain is improved but not gone. We discussed findings and treatment options/plan. Will do oxycodone for a couple days along with a steroid burst and continuing his cyclobenzaprine. If this isn't improving in 1-2 days will follow up with his PCP. He says he doesn't need a work note. Discharged to home in stable condition. Departure - Departure Time of Disposition: 09:48 Disposition: Home, Self-Care 01 Condition: Good Clinical Impression: Leg muscle spasm Qualifiers: Laterality: left Qualified Code(s): M62.838 - Other muscle spasm - Discharge Information Instructions: Muscle Cramps and Spasms, [id number] Referrals: Marta Dupont PA-C [Primary Care Provider] - Forms: ED Department Discharge Additional Instructions: Drink 8 cups of water daily. Take the steroid as directed starting tomorrow morning. Take your Cyclobenzaprine as directed up to 3 times a day. Take the oxycodone as directed. Avoid driving when using the oxycodone and/or cyclobenzaprine. Follow up with your PCP in 1-2 days for recheck if not improving. Sepsis Event Note (ED) - Evaluation Sepsis Screening Result: No Definite Risk - Focused Exam Vital Signs: Vital Signs Temp Pulse Resp BP Pulse Ox 11/21/20 07:28 96.5 F L 97 20 145/77 H 94 L
[2020-11-21 09:02] LABS: ANION GAP 17.4 mmol/L (5-15); CHLORIDE,CL 103 mmol/L (98-107); SODIUM,NA 141 mmol/L (136-145)
[2020-11-21] MEDS ORDERED: methylPREDNISolone Sodium Succinate 125 MG/2 ML SDV IM ONE (09:02)
== END 2020-11-21 10:05 | disposition home or self-care (01) ==
LOC: KA.ED 07:00
DX: M62.838 Other muscle spasm (principal); E11.9 Type 2 diabetes mellitus without complications; E03.9 Hypothyroidism, unspecified; Z88.8 Allergy status to other drugs, medicaments and biological substances; Z88.5 Allergy status to narcotic agent; Z79.84 Long term (current) use of oral hypoglycemic drugs; Z79.899 Other long term (current) drug therapy
CPT/HCPCS: 36415; 80048; 85025; 85379; 86140; 96372; 99283; A9270-GY; J2930

== ENCOUNTER 2022-05-10 11:25 | Emergency (ER) | payer BC ==
[2022-05-10] MEDS ORDERED: Ketorolac 30 MG/ML SDV IVPUSH ONE (11:40)
[2022-05-10] MEDS ORDERED: Cyclobenzaprine 10 MG Tab PO ONE (12:20)
[2022-05-10] MEDS ORDERED: methylPREDNISolone Sodium Succinate 125 MG/2 ML SDV IVPUSH ONE (12:22)
== END 2022-05-10 13:22 ==
LOC: KA.ED 11:25
DX: M54.50 Low back pain, unspecified (principal)
CPT/HCPCS: 96374; 96375; 99283; A9270; J1885; J2930

== ENCOUNTER 2023-05-08 06:55 | Emergency (ER) | payer BC ==
[2023-05-08] MEDS: Sodium Chloride 0.9% 1,000 ML IV ONE (07:18)
[2023-05-08 07:33] LABS: BASOPHILS ABSOLUTE AUTO 0.01 10^3/uL (0.00-0.10); BASOPHILS PERCENT AUTO 0.2 % (0.0-1.0); EOSINOPHILS ABSOLUTE AUTO 0.12 10^3/uL (0.10-0.30); EOSINOPHILS PERCENT AUTO 2.8 % (1.0-3.0); HEMATOCRIT 41.9 % (40.0-52.0); HEMOGLOBIN 13.8 g/dL (13.0-17.0); IMMATURE GRAN ABSOLUTE AUTO 0.01 10^3/uL (0.00-0.50); IMMATURE GRAN PERCENT AUTO 0.2 % (0.0-5.0); LYMPHOCYTES ABSOLUTE AUTO 1.27 10^3/uL (1.00-4.00); LYMPHOCYTES PERCENT AUTO 29.5 % (20.0-40.0); MEAN CORPUSCULAR HEMOGLOBIN 28.2 pg (27.0-31.0); MEAN CORPUSCULAR HGB CONC 32.9 g/dL (32.0-36.0); MEAN CORPUSCULAR VOLUME 85.7 fL (82.0-92.0); MEAN PLATELET VOLUME 8.6 fL (7.4-10.4); MONOCYTES ABSOLUTE AUTO 0.45 10^3/uL (0.10-0.80); MONOCYTES PERCENT AUTO 10.5 % (2.0-8.0); NEUTROPHILS ABSOLUTE AUTO 2.44 10^3/uL (2.50-7.00); NEUTROPHILS PERCENT AUTO 56.8 % (50.0-70.0); PLATELET COUNT,PLT 206 10^3/uL (150-400); RED BLOOD CELL COUNT 4.89 10^6/uL (4.50-6.00); RED CELL DISTRIBUTION WIDTH 12.8 % (11.5-14.5)
[2023-05-08 07:40] LABS: ALBUMIN 4.14 g/dL (3.40-5.00); ANION GAP 12.1 mmol/L (5-15); BILIRUBIN TOTAL 0.4 mg/dL (0.2-1.0); CALCIUM 8.9 mg/dL (8.7-10.3); CARBON DIOXIDE,CO2 28.2 mmol/L (21.0-32.0); CREATININE 1.05 mg/dL (0.51-1.17); EST CRCL DRUG DOSING (CG) 83.23 mL/min; POTASSIUM,K 4.3 mmol/L (3.5-5.1); PROTEIN TOTAL,TP 7.1 g/dL (6.4-8.2)
[2023-05-08] MEDS: HYDROmorphone 1 MG/ML Syringe IVPUSH ONE (07:49)
[2023-05-08] MEDS: Ondansetron 4 MG/2 ML SDV IVPUSH ONE (07:49)
[2023-05-08] MEDS: Sodium Chloride 0.9% 50 ML IV SCH (08:15)
[2023-05-08] MEDS: Iopamidol 755 Mg/ML 100 ML Bottle IV ONE (08:15)
== END 2023-05-08 09:05 | disposition home or self-care (01) ==
LOC: KA.ED 06:55
DX: R10.13 Epigastric pain (principal); E11.9 Type 2 diabetes mellitus without complications; Z88.8 Allergy status to other drugs, medicaments and biological substances; Z88.5 Allergy status to narcotic agent; Z79.84 Long term (current) use of oral hypoglycemic drugs; Z87.891 Personal history of nicotine dependence
CPT/HCPCS: 74177; 80053; 83690; 85025; 96361; 96374; 96375; 99284-25; J1170; J2405; J3490; J7030; Q9967

== ENCOUNTER 2025-07-06 07:12 | Emergency (ER) | payer BC ==
[2025-07-06] MEDS: Sodium Chloride 0.9% 10 ML Syringe FLUSH PRN (07:33)
[2025-07-06 07:39] LABS: BASOPHILS ABSOLUTE AUTO 0.02 10^3/uL (0.00-0.10); BASOPHILS PERCENT AUTO 0.4 % (0.0-1.0); EOSINOPHILS ABSOLUTE AUTO 0.17 10^3/uL (0.10-0.30); EOSINOPHILS PERCENT AUTO 3.1 % (1.0-3.0); IMMATURE GRAN ABSOLUTE AUTO 0.01 10^3/uL (0.00-0.04); IMMATURE GRAN PERCENT AUTO 0.2 % (0.0-0.4); LYMPHOCYTES ABSOLUTE AUTO 1.54 10^3/uL (1.00-4.00); LYMPHOCYTES PERCENT AUTO 27.7 % (20.0-40.0); MEAN PLATELET VOLUME 8.4 fL (7.4-10.4); MONOCYTES ABSOLUTE AUTO 0.55 10^3/uL (0.10-0.80); MONOCYTES PERCENT AUTO 9.9 % (2.0-8.0); NEUTROPHILS ABSOLUTE AUTO 3.26 10^3/uL (2.50-7.00); NEUTROPHILS PERCENT AUTO 58.7 % (50.0-70.0); PLATELET COUNT,PLT 218 10^3/uL (150-400); RED BLOOD CELL COUNT 4.65 10^6/uL (4.50-6.00); RED CELL DISTRIBUTION WIDTH 13.0 % (11.5-14.5); WHITE BLOOD CELL COUNT,WBC 5.55 10^3/uL (5.00-10.00)
[2025-07-06 07:40] LABS: APPEARANCE,URINE CLEAR (CLEAR); GLUCOSE,URINE NEGATIVE (NEGATIVE); OCCULT BLOOD,URINE NEGATIVE (NEGATIVE)
[2025-07-06 07:53] LABS: ALANINE AMINOTRANSFERASE,ALT 49.0 U/L (14-63); ASPARTATE AMNIOTRANSFERASE,AST 29.0 U/L (15-37); BILIRUBIN TOTAL 0.7 mg/dL (0.2-1.0); BLOOD UREA NITROGEN,BUN 21.0 mg/dL (7-18); CARBON DIOXIDE,CO2 27.7 mmol/L (21.0-32.0); CHLORIDE,CL 105.0 mmol/L (98-107); CREATININE 0.96 mg/dL (0.51-1.17); EST CRCL DRUG DOSING (CG) 88.99 mL/min; GLUCOSE RANDOM 128.0 mg/dL (70-140); POTASSIUM,K 4.1 mmol/L (3.5-5.1); PROTEIN TOTAL,TP 7.2 g/dL (6.4-8.2); SODIUM,NA 142.0 mmol/L (136-145)
[2025-07-06 07:59] LABS: ESTIMATED GFR 95.0 mL/min (>=60)
[2025-07-06] MEDS: Ondansetron 4 MG/2 ML SDV IVPUSH ONE (08:27)
[2025-07-06] MEDS: Iopamidol 755 Mg/ML 100 ML Bottle IV ONE (08:36)
[2025-07-06] MEDS: Ketorolac 30 MG/ML SDV IVPUSH ONE (09:27)
== END 2025-07-06 09:35 | disposition home or self-care (01) ==
LOC: KA.ED 07:12
DX: R10.13 Epigastric pain (principal); E11.9 Type 2 diabetes mellitus without complications; E03.9 Hypothyroidism, unspecified; Z88.5 Allergy status to narcotic agent; Z88.8 Allergy status to other drugs, medicaments and biological substances; Z79.899 Other long term (current) drug therapy; Z79.84 Long term (current) use of oral hypoglycemic drugs; Z79.4 Long term (current) use of insulin
CPT/HCPCS: 36415; 74177; 80053; 81003; 83690; 85025; 96361; 96374; 96375; 99284; 99284-25; J1171; J1885; J2405; J7030; Q9967